=== PATIENT | female | born 1990 | race American Indian/Alaskan Native ===

== ENCOUNTER 2017-03-03 10:12 | Inpatient (IN) | payer MEDICAID, OTHER ==
[2017-03-03 10:43] LABS: Hematocrit 39.4 % (30.3-42.9); Hemoglobin 13.5 gm/dl (10.1-14.3); Mean Corpuscular HGB Conc 34 % (30-34); Mean Corpuscular Hemoglobin 33 pg (28-32); Mean Corpuscular Volume 95 fl (79-97); Platelet Count 240 K/mm3 (140-440); Red Blood Count 4.16 M/mm3 (3.65-5.03); Red Cell Distribution Width 13.7 % (13.2-15.2); White Blood Count 8.6 K/mm3 (4.5-11.0)
[2017-03-03 11:02] LABS: Alanine Aminotransferase 13 units/L (7-56); Albumin 4.1 g/dL (3.9-5); Albumin/Globulin Ratio 1.2 %; Alkaline Phosphatase 56 units/L (35-129); Anion Gap 18 mmol/L; BUN/Creatinine Ratio 32; Blood Urea Nitrogen 16 mg/dL (7-17); Calcium 9.1 mg/dL (8.4-10.2); Carbon Dioxide 23 mmol/L (22-30); Chloride 101.4 mmol/L (98-107); Glucose 111 mg/dL (65-100); Lipase 12 units/L (13-60); Potassium 3.8 mmol/L (3.6-5.0); Sodium 139 mmol/L (137-145); Total Protein 7.5 g/dL (6.3-8.2)
[2017-03-03 11:32] LABS: Basophils % (Manual) 0 % (0.0-1.8); Blastocytes % (Manual) 0 %; Diff Status Complete; Eosinophils % (Manual) 0 % (0.0-4.3); RBC Morphology Normal
[2017-03-03 11:36] LABS: Bacteria,Urine 1+ /HPF (Negative); Bilirubin,Urine NEG (Negative); Blood,Urine NEG (Negative); Ketones,Urine NEG (Negative); Leukocyte Esterase,Urine NEG (Negative); Mucus,Urine 2+ /HPF; Nitrite,Urine NEG (Negative); Protein,Urine <15 mg/dL mg/dL (Negative); Urobilinogen,Urine < 2.0 mg/dL (<2.0)
[2017-03-03] MEDS ORDERED: SUBLIMAZE IV ONE (12:53)
[2017-03-03] MEDS ORDERED: ZOFRAN IV ONE (12:53)
[2017-03-03] MEDS ORDERED: NACL 0.9% 1000 ML 1,000 ML IV ONE ×2 (12:53→14:58)
--- NOTE | 2017-03-03 13:00 | Emergency Department Report ---
HPI - General Chief Complaint: Nausea/Vomiting/Diarrhea Time Seen by Provider: 03/03/17 12:45 - [facility] HPI: Bond 26 The patient is a 26-year-old female presenting with a chief complaint abdominal pain nausea vomiting diarrhea. The patient states yesterday she had eaten some baked chicken and then went to [email or web address] and ate a chicken concerning which with yemeni fries. The patient states approximately one hour later she developed intractable nausea and vomiting. The patient says she's been vomiting every hour since 20:00 last night. Patient states more additional developed diarrhea. The patient complains of diffuse abdominal pain. Patient denies dysuria, hematuria or sick contacts. Patient denies any history of fever. Location: Abdomen Duration: Constant since yesterday evening Quality: Pain Severity: Moderate Modifying factors: [see above] Context: [see above] Mode of transportation: Unknown ED Past Medical Hx - Past Medical History Hx GERD: Yes - Surgical History Past Surgical History?: No - Family History Family history: no significant - Social History Smoking Status: Never Smoker Substance Use Type: None (denies illicit drug use), Alcohol (occasional) - Medications Home Medications: Home Medications Medication Instructions Recorded Confirmed Last Taken Type Acetaminophen/Codeine [Tylenol 1 tab PO Q6H PRN #15 tab 06/05/13 Unknown Rx /Codeine # 3 tab] Naproxen Sodium (Nf) [Anaprox DS 550 mg PO BID PRN #20 tablet 06/05/13 Unknown Rx TAB] ED Review of Systems ROS: Stated complaint: VOMITING Other details as noted in HPI Constitutional: denies: fever Gastrointestinal: abdominal pain, nausea, vomiting, diarrhea, hematemesis Physical Exam - Physical Exam Vital Signs: Vital Signs 03/03/17 10:20 Temperature 96.6 F L Pulse Rate 89 Respiratory 22 Rate Blood Pressure 111/71 O2 Sat by Pulse 98 Oximetry Physical Exam: GENERAL: The patient is well-developed well-nourished female lying on stretcher not appearing to be in acute distress. [] HEENT: Normocephalic. Atraumatic. Extraocular motions are intact. Patient has moist mucous membranes. NECK: Supple. Trachea midline CHEST/LUNGS: Clear to auscultation. There is no respiratory distress noted. HEART/CARDIOVASCULAR: Regular. There is no tachycardia. There is no gallop rub or murmur. ABDOMEN: Abdomen is soft, with tenderness to palpation in the right lower quadrant. Patient has normal bowel sounds. There is no abdominal distention. SKIN: There is no rash. There is no edema. There is no diaphoresis. NEURO: The patient is awake, alert, and oriented. The patient is cooperative. The patient has normal speech MUSCULOSKELETAL: There is no evidence of acute injury. ED Course Vital Signs 03/03/17 10:20 Temperature 96.6 F L Pulse Rate 89 Respiratory 22 Rate Blood Pressure 111/71 O2 Sat by Pulse 98 Oximetry - Consultations Consultation #1: 03/03/17 14:46 Surgery paged 03/03/17 14:[address] Monahan- recommends the patient admitted to the hospital by the hospitalist observed overnight, rehydrated and have CBC rechecked. Will consult ED Medical Decision Making - Lab Data Result diagrams: 03/03/17 10:26 03/03/17 10:26 Laboratory Tests 03/03/17 03/03/17 03/03/17 10:26 10:26 10:26 WBC 8.6 RBC 4.16 Hgb 13.5 Hct 39.4 MCV 95 MCH 33 H MCHC 34 RDW 13.7 Plt Count 240 Add Manual Diff Complete Total Counted 100 Seg Neutrophils % Traditional Chinese Herbalist Seg Neuts % (Manual) 89.0 H Band Neutrophils % 2.0 Lymphocytes % (Manual) 8.0 L Reactive Lymphs % (Man) 0 Monocytes % (Manual) 1.0 Eosinophils % (Manual) 0 Basophils % (Manual) 0 Metamyelocytes % 0 Myelocytes % 0 Promyelocytes % 0 Blast Cells % 0 Nucleated RBC % Not Reportable Seg Neutrophils # Man 7.7 Band Neutrophils # 0.2 Lymphocytes # (Manual) 0.7 L Abs React Lymphs (Man) 0.0 Monocytes # (Manual) 0.1 Eosinophils # (Manual) 0.0 Basophils # (Manual) 0.0 Metamyelocytes # 0.0 Myelocytes # 0.0 Promyelocytes # 0.0 Blast Cells # 0.0 WBC Morphology Not Reportable Hypersegmented Neuts Not Reportable Hyposegmented Neuts Not Reportable Hypogranular Neuts Not Reportable Smudge Cells Not Reportable Toxic Granulation Not Reportable Toxic Vacuolation Not Reportable Dohle Bodies Not Reportable Pelger-Huet Anomaly Not Reportable Aminata Rods Not Reportable Platelet Estimate Not Reportable Clumped Platelets Not Reportable Plt Clumps, EDTA Not Reportable Large Platelets Not Reportable Giant Platelets Not Reportable Platelet Satelliting Not Reportable Plt Morphology Comment Not Reportable RBC Morphology Normal Dimorphic RBCs Not Reportable Polychromasia Not Reportable Hypochromasia Not Reportable Poikilocytosis Not Reportable Anisocytosis Not Reportable Microcytosis Not Reportable Macrocytosis Not Reportable Spherocytes Not Reportable Pappenheimer Bodies Not Reportable Sickle Cells Not Reportable Target Cells Not Reportable Tear Drop Cells Not Reportable Ovalocytes Not Reportable Helmet Cells Not Reportable Lund[place] Bodies Not Reportable [place] Rings Not Reportable Frankie Cells Not Reportable Bite Cells Not Reportable Crenated Cell Not Reportable Elliptocytes Not Reportable Acanthocytes (Spur) Not Reportable Rouleaux Not Reportable Hemoglobin C Crystals Not Reportable Schistocytes Not Reportable Malaria parasites Not Reportable Daniele Bodies Not Reportable Hem Pathologist Commnt No Sodium 139 Potassium 3.8 Chloride 101.4 Carbon Dioxide 23 Anion Gap 18 BUN 16 Creatinine 0.5 L Estimated GFR > 60 BUN/Creatinine Ratio 32 Glucose 111 H Calcium 9.1 Total Bilirubin 0.60 AST 17 ALT 13 Alkaline Phosphatase 56 Total Protein 7.5 Albumin 4.1 Albumin/Globulin Ratio 1.2 Lipase 12 L HCG, Qual Negative Urine Color Urine Turbidity Urine pH Ur Specific [place] Urine Protein Urine Glucose (UA) Urine Ketones Urine Blood Urine Nitrite Urine Bilirubin Urine Urobilinogen Ur Leukocyte Esterase Urine WBC (Auto) Urine RBC (Auto) U Epithel Cells (Auto) Urine Bacteria (Auto) Urine Mucus 03/03/17 11:12 WBC RBC Hgb Hct MCV MCH MCHC RDW Plt Count Add Manual Diff Total Counted Seg Neutrophils % Seg Neuts % (Manual) Band Neutrophils % Lymphocytes % (Manual) Reactive Lymphs % (Man) Monocytes % (Manual) Eosinophils % (Manual) Basophils % (Manual) Metamyelocytes % Myelocytes % Promyelocytes % Blast Cells % Nucleated RBC % Seg Neutrophils # Man Band Neutrophils # Lymphocytes # (Manual) Abs React Lymphs (Man) Monocytes # (Manual) Eosinophils # (Manual) Basophils # (Manual) Metamyelocytes # Myelocytes # Promyelocytes # Blast Cells # WBC Morphology Hypersegmented Neuts Hyposegmented Neuts Hypogranular Neuts Smudge Cells Toxic Granulation Toxic Vacuolation Dohle Bodies Pelger-Huet Anomaly Aminata Rods Platelet Estimate Clumped Platelets Plt Clumps, EDTA Large Platelets Giant Platelets Platelet Satelliting Plt Morphology Comment RBC Morphology Dimorphic RBCs Polychromasia Hypochromasia Poikilocytosis Anisocytosis Microcytosis Macrocytosis Spherocytes Pappenheimer Bodies Sickle Cells Target Cells Tear Drop Cells Ovalocytes Helmet Cells [place] Bodies [place] Rings Frank[place] Cells Bite Cells Crenated Cell Elliptocytes Acanthocytes (Spur) Rouleaux Hemoglobin C Crystals Schistocytes Malaria parasites Daniele Bodies Hem Pathologist Commnt Sodium Potassium Chloride Carbon Dioxide Anion Gap BUN Creatinine Estimated GFR BUN/Creatinine Ratio Glucose Calcium Total Bilirubin AST ALT Alkaline Phosphatase Total Protein Albumin Albumin/Globulin Ratio Lipase HCG, Qual Urine Color Yellow Urine Turbidity Clear Urine pH 5.0 Ur Specific [place] 1.033 H Urine Protein <15 mg/dl Urine Glucose (UA) Neg Urine Ketones Neg Urine Blood Neg Urine Nitrite Neg Urine Bilirubin Neg Urine Urobilinogen < 2.0 Ur Leukocyte Esterase Neg Urine WBC (Auto) 1.0 Urine RBC (Auto) 7.0 U Epithel Cells (Auto) 3.0 Urine Bacteria (Auto) 1+ Urine Mucus 2+ - Radiology Data Radiology results: report reviewed (CT abdomen and pelvis), image reviewed (CT abdomen and pelvis) FINAL REPORT EXAM: CT ABDOMEN PELVIS W CON HISTORY: nausea and vomiting, right lower quadrant tenderne TECHNIQUE: CT examination of the ABDOMEN after IV contrast CT examination of the PELVIS after IV contrast PRIORS: None. FINDINGS: Lucencies in the gallbladder lumen are suggestive of gas within gallstones. No CT evidence of other biliary pathology. Normal-appearing liver, adrenals, pancreas, and spleen. Intact normal caliber abdominal aorta and IVC. No renal calculus or hydronephrosis. Normal-appearing kidneys and visible ureteral segments. Distal ureters are obscured by adjacent pelvic anatomy. Intact anterior abdominal wall. No evidence of retroperitoneal adenopathy or mesenteric mass. Normal-appearing stomach and duodenum. No small bowel distention in the abdomen and pelvis. Nonspecific slight pelvic free fluid may be reactive. Normal-appearing urinary bladder, uterus, adnexae, and rectum. Slight sigmoid diverticulosis without definite CT evidence of acute inflammation. No gross ascites, free air, or colonic distention. Normal-appearing cecum and terminal ileum. 3 mm appendicolith in the mid appendix. Otherwise normal-appearing appendix. IMPRESSION: 3 mm appendicolith in otherwise normal-appearing appendix Cholelithiasis Slight free fluid in the pelvis may be reactive Slight sigmoid diverticulosis Transcribed By: ALBINO Dictated By: LINDA GOTTI MD Electronically Authenticated By: LINDA GOTTI MD Signed Date/Time: 03/03/171031 DD/ 31 TD/TT: 03/03/171031 - Differential Diagnosis salmonella, enteritis, appendicitis Critical care attestation.: If time is entered above; I have spent that time in minutes in the direct care of this critically ill patient, excluding procedure time. ED Disposition Clinical Impression: Nausea vomiting and diarrhea, Appendicolith, Cholelithiasis Disposition: [id number] OP ADMIT IP TO THIS HOSP Is pt being admited?: Yes Does the pt Need Aspirin: No Condition: Fair Referrals: PRIMARY CARE, [Primary Care Provider] - 3-5 Days Time of Disposition: 14:57 (hospitalist paged (Dr. Riddle))
--- NOTE | 2017-03-03 14:36 | Cat Scan Report ---
FINAL REPORT EXAM: CT ABDOMEN PELVIS W CON HISTORY: nausea and vomiting, right lower quadrant tenderne TECHNIQUE: CT examination of the ABDOMEN after IV contrast CT examination of the PELVIS after IV contrast PRIORS: None. FINDINGS: Lucencies in the gallbladder lumen are suggestive of gas within gallstones. No CT evidence of other biliary pathology. Normal-appearing liver, adrenals, pancreas, and spleen. Intact normal caliber abdominal aorta and IVC. No renal calculus or hydronephrosis. Normal-appearing kidneys and visible ureteral segments. Distal ureters are obscured by adjacent pelvic anatomy. Intact anterior abdominal wall. No evidence of retroperitoneal adenopathy or mesenteric mass. Normal-appearing stomach and duodenum. No small bowel distention in the abdomen and pelvis. Nonspecific slight pelvic free fluid may be reactive. Normal-appearing urinary bladder, uterus, adnexae, and rectum. Slight sigmoid diverticulosis without definite CT evidence of acute inflammation. No gross ascites, free air, or colonic distention. Normal-appearing cecum and terminal ileum. 3 mm appendicolith in the mid appendix. Otherwise normal-appearing appendix. IMPRESSION: 3 mm appendicolith in otherwise normal-appearing appendix Cholelithiasis Slight free fluid in the pelvis may be reactive Slight sigmoid diverticulosis
--- NOTE | 2017-03-03 15:12 | History and Physical Report ---
History of Present Illness Chief complaint: My stomach hurts History of present illness: 26 YO Female with GERD, Obesity presents to ED for evaluation. Pt states that she has experienced Abdominal pain preceded by nausea, vomiting, and multiple episodes of loose stools. Pt states that symptoms began approximately 2 hours after eating some fast food. The patient states approximately 1-2hours later she developed intractable nausea and vomiting. The patient says she's been vomiting every hour since 20:00 last night. The patient states that her pain is 5/10, diffuse,nonradiating, without exacerbating or alleviating factors. Patient denies fever, chills, CP, skin rashes, dysuria, hematuria or sick contacts. Pt seen and evaluated in ED and found to have symptoms consistent with gastroenteritis, and intractible nausea and vomiting. Past History Past Medical History: GERD Past Surgical History: No surgical history Social history: single. denies: smoking, alcohol abuse, prescription drug abuse Family history: no significant family history Medications and Allergies Allergies Allergy/AdvReac Type Severity Reaction Status Date / Time No Known Allergies Allergy Unverified 06/04/13 22:49 Home Medications Medication Instructions Recorded Confirmed Last Taken Type No Known Home Medications [No 03/03/17 03/03/17 Unknown History Reported Home Medications] Active Meds: Active Medications Sodium Chloride (Nacl 0.9% 1000 Ml) 1,000 mls @ 125 mls/hr IV ONCE ONE Stop: 03/03/17 22:57 Review of Systems Constitutional: no weight loss, no weight gain, no fever, no chills Ears, nose, mouth and throat: no ear pain, no ear discharge, no tinnitis, no decreased hearing, no nose pain Breasts: no change in shape, no swelling, no mass Cardiovascular: no chest pain, no orthopnea, no palpitations, no rapid/ irregular heart beat, no edema Respiratory: no cough, no cough with sputum, no excessive sputum, no hemoptysis , no shortness of breath Gastrointestinal: abdominal pain, nausea, vomiting, diarrhea, no hematemesis, no coffee ground emesis, no melena, no hematochezia, no loss of appetite, no early satiety, no heartburn, no indigestion Genitourinary Female: no pelvic pain, no flank pain, no menorrhagia, no dysuria , no urinary frequency, no urgency, no stress incontinence Rectal: no pain, no incontinence, no bleeding Musculoskeletal: no neck stiffness, no neck pain, no shooting arm pain, no arm numbness/tingling, no low back pain, no shooting leg pain Neurological: no head injury, no paralysis, no weakness, no parathesias, no numbness, no tingling Psychiatric: no anxiety, no memory loss, no change in sleep habits, no sleep disturbances, no insomnia, no hypersomnia, no change in appetite Endocrine: no cold intolerance, no heat intolerance, no polyphagia, no excessive thirst, no polydipsia, no polyuria Hematologic/Lymphatic: no easy bruising, no easy bleeding Allergic/Immunologic: no urticaria, no allergic rhinitis, no wheezing Exam - Constitutional Vitals: Temp Pulse Resp BP Pulse Ox 96.6 F L 89 22 111/71 98 03/03/17 10:20 03/03/17 10:20 03/03/17 10:20 03/03/17 10:20 03/03/17 10:20 General appearance: Present: mild distress, obese - EENT Eyes: Present: PERRL ENT: hearing intact, clear oral mucosa - Neck Neck: Present: supple, normal ROM - Respiratory Respiratory effort: normal Respiratory: bilateral: CTA - Cardiovascular Heart Sounds: Present: S1 & S2. Absent: rub, click - Extremities Extremities: pulses symmetrical, No edema Peripheral Pulses: within normal limits - Abdominal General gastrointestinal: Present: soft, tender, non-distended, normal bowel sounds Localized gastrointestinal: tender: diffuse Female genitourinary: Present: normal - Integumentary Integumentary: Present: clear, warm, dry - Musculoskeletal Musculoskeletal: gait normal, strength equal bilaterally - Psychiatric Psychiatric: appropriate mood/affect, intact judgment & insight - Neurologic Neurologic: CNII-XII intact, moves all extremities Results - Labs CBC & Chem 7: 03/03/17 10:26 03/03/17 10:26 Labs: Abnormal lab results 03/03/17 03/03/17 03/03/17 Range/Units 10:26 10:26 11:12 MCH 33 H (28-32) pg Seg Neuts % (Manual) 89.0 H (40.0-70.0) % Lymphocytes % (Manual) 8.0 L (13.4-35.0) % Lymphocytes # (Manual) 0.7 L (1.2-5.4) K/mm3 Creatinine 0.5 L (0.7-1.2) mg/dL Glucose 111 H (65-100) mg/dL Lipase 12 L (13-60) units/L Ur Specific [place] 1.033 H (1.003-1.030) Assessment and Plan - Patient Problems (1) Gastroenteritis Current Visit: Yes Status: Acute Plan to address problem: Bowel rest, CT abdomen/Pelvis, IVF resuscitation, antiemetic therapy, monitor uop q shift, serial abdominal exam, surgery consulted in ED (2) Intractable nausea and vomiting Current Visit: Yes Status: Acute Plan to address problem: bowel rest, IVF resuscitation, anti emetic therapy, (3) GERD (gastroesophageal reflux disease) Current Visit: Yes Status: Acute Plan to address problem: PPI therapy, advance diet as tolerated (4) DVT prophylaxis Current Visit: Yes Status: Acute
[2017-03-03] MEDS ORDERED: ZOFRAN IV PRN (15:13)
[2017-03-03] MEDS ORDERED: TYLENOL PO PRN (15:13)
[2017-03-03] MEDS ORDERED: PROVENTIL IH PRN (15:13)
[2017-03-03] MEDS: MORPHINE IV PRN (22:42)
[2017-03-04] MEDS: NACL 0.45% 1000 ML 1,000 ML IV SCH ×2 (05:50→17:16)
--- NOTE | 2017-03-04 09:08 | Progress Note ---
Assessment and Plan Assessment and plan: Acute gastroenteritis. She is on iv fluids. narcotics for pain management. Appendicolith. Patient to be evaluated by Surgeon Nausea and vomiting due to gastroenteritis Cholelithiasis. For US gall bladder for further evaluation. DVT prophylaxis. SCDs only for now because may need surg. Full code status Morbid obesity. I counseled her on importance of diet and exercise to lose weight. History Interval history: Right lower quadrant abdominal pain, nausea, vomiting Hospitalist Physical - Physical exam Narrative exam: GEN APPEARANCE : Not in acute distress, morbidly obese HEENT: Normocephalic, Atraumatic NECK : supple, no JVD LUNGS: Clear to auscultation bilaterally, no rales, no wheeze HEART: S1 and S2 regular, no murmurs, rubs or gallop, ABD: Soft, mild tender right lower quadrant, no rebound tenderness, non distended, normal bowel sounds EXT: No edema, no clubbing, no cyanosis NEURO: AAO x 3, moves all exttremities. No focal signs - Constitutional Vitals: Temp Pulse Resp BP Pulse Ox 98.3 F 73 18 100/54 97 03/04/17 07:12 03/04/17 07:12 03/04/17 07:12 03/04/17 07:12 03/04/17 07:12 Results - Labs CBC & Chem 7: 03/04/17 10:13 03/04/17 10:13 Labs: Laboratory Last Values WBC 8.6 K/mm3 (4.5-11.0) 03/03/17 10:26 RBC 4.16 M/mm3 (3.65-5.03) 03/03/17 10:26 Hgb 13.5 gm/dl (10.1-14.3) 03/03/17 10:26 Hct 39.4 % (30.3-42.9) 03/03/17 10:26 MCV 95 fl (79-97) 03/03/17 10:26 MCH 33 pg (28-32) H 03/03/17 10:26 MCHC 34 % (30-34) 03/03/17 10:26 RDW 13.7 % (13.2-15.2) 03/03/17 10:26 Plt Count 240 K/mm3 (140-440) 03/03/17 10:26 Add Manual Diff Complete 03/03/17 10:26 Total Counted 100 03/03/17 10:26 Seg Neutrophils % [place] 03/03/17 10:26 Seg Neuts % (Manual) 89.0 % (40.0-70.0) H 03/03/17 10:26 Band Neutrophils % 2.0 % 03/03/17 10:26 Lymphocytes % (Manual) 8.0 % (13.4-35.0) L 03/03/17 10:26 Reactive Lymphs % (Man) 0 % 03/03/17 10:26 Monocytes % (Manual) 1.0 % (0.0-7.3) 03/03/17 10:26 Eosinophils % (Manual) 0 % (0.0-4.3) 03/03/17 10:26 Basophils % (Manual) 0 % (0.0-1.8) 03/03/17 10:26 Metamyelocytes % 0 % 03/03/17 10:26 Myelocytes % 0 % 03/03/17 10:26 Promyelocytes % 0 % 03/03/17 10:26 Blast Cells % 0 % 03/03/17 10:26 Nucleated RBC % Not Reportable 03/03/17 10:26 Seg Neutrophils # Man 7.7 K/mm3 (1.8-7.7) 03/03/17 10:26 Band Neutrophils # 0.2 K/mm3 03/03/17 10:26 Lymphocytes # (Manual) 0.7 K/mm3 (1.2-5.4) L 03/03/17 10:26 Abs React Lymphs (Man) 0.0 K/mm3 03/03/17 10:26 Monocytes # (Manual) 0.1 K/mm3 (0.0-0.8) 03/03/17 10:26 Eosinophils # (Manual) 0.0 K/mm3 (0.0-0.4) 03/03/17 10:26 Basophils # (Manual) 0.0 K/mm3 (0.0-0.1) 03/03/17 10:26 Metamyelocytes # 0.0 K/mm3 03/03/17 10:26 Myelocytes # 0.0 K/mm3 03/03/17 10:26 Promyelocytes # 0.0 K/mm3 03/03/17 10:26 Blast Cells # 0.0 K/mm3 03/03/17 10:26 WBC Morphology Not Reportable 03/03/17 10:26 Hypersegmented Neuts Not Reportable 03/03/17 10:26 Hyposegmented Neuts Not Reportable 03/03/17 10:26 Hypogranular Neuts Not Reportable 03/03/17 10:26 Smudge Cells Not Reportable 03/03/17 10:26 Toxic Granulation Not Reportable 03/03/17 10:26 Toxic Vacuolation Not Reportable 03/03/17 10:26 Dohle Bodies Not Reportable 03/03/17 10:26 Pelger-Huet Anomaly Not Reportable 03/03/17 10:26 Aminata Rods Not Reportable 03/03/17 10:26 Platelet Estimate Not Reportable 03/03/17 10:26 Clumped Platelets Not Reportable 03/03/17 10:26 Plt Clumps, EDTA Not Reportable 03/03/17 10:26 Large Platelets Not Reportable 03/03/17 10:26 Giant Platelets Not Reportable 03/03/17 10:26 Platelet Satelliting Not Reportable 03/03/17 10:26 Plt Morphology Comment Not Reportable 03/03/17 10:26 RBC Morphology Normal 03/03/17 10:26 Dimorphic RBCs Not Reportable 03/03/17 10:26 Polychromasia Not Reportable 03/03/17 10:26 Hypochromasia Not Reportable 03/03/17 10:26 Poikilocytosis Not Reportable 03/03/17 10:26 Anisocytosis Not Reportable 03/03/17 10:26 Microcytosis Not Reportable 03/03/17 10:26 Macrocytosis Not Reportable 03/03/17 10:26 Spherocytes Not Reportable 03/03/17 10:26 Pappenheimer Bodies Not Reportable 03/03/17 10:26 Sickle Cells Not Reportable 03/03/17 10:26 Target Cells Not Reportable 03/03/17 10:26 Tear Drop Cells Not Reportable 03/03/17 10:26 Ovalocytes Not Reportable 03/03/17 10:26 Helmet Cells Not Reportable 03/03/17 10:26 Lundberg-[place] Bodies Not Reportable 03/03/17 10:26 [place] Rings Not Reportable 03/03/17 10:26 Frankie Cells Not Reportable 03/03/17 10:26 Bite Cells Not Reportable 03/03/17 10:26 Crenated Cell Not Reportable 03/03/17 10:26 Elliptocytes Not Reportable 03/03/17 10:26 Acanthocytes (Spur) Not Reportable 03/03/17 10:26 Rouleaux Not Reportable 03/03/17 10:26 Hemoglobin C Crystals Not Reportable 03/03/17 10:26 Schistocytes Not Reportable 03/03/17 10:26 Malaria parasites Not Reportable 03/03/17 10:26 Daniele Bodies Not Reportable 03/03/17 10:26 Hem Pathologist Commnt No 03/03/17 10:26 Sodium 139 mmol/L (137-145) 03/03/17 10:26 Potassium 3.8 mmol/L (3.6-5.0) 03/03/17 10:26 Chloride 101.4 mmol/L (98-107) 03/03/17 10:26 Carbon Dioxide 23 mmol/L (22-30) 03/03/17 10:26 Anion Gap 18 mmol/L 03/03/17 10:26 BUN 16 mg/dL (7-17) 03/03/17 10:26 Creatinine 0.5 mg/dL (0.7-1.2) L 03/03/17 10:26 Estimated GFR > 60 ml/min 03/03/17 10:26 BUN/Creatinine Ratio 32 % 03/03/17 10:26 Glucose 111 mg/dL (65-100) H 03/03/17 10:26 Calcium 9.1 mg/dL (8.4-10.2) 03/03/17 10:26 Total Bilirubin 0.60 mg/dL (0.1-1.2) 03/03/17 10:26 AST 17 units/L (5-40) 03/03/17 10:26 ALT 13 units/L (7-56) 03/03/17 10:26 Alkaline Phosphatase 56 units/L (35-129) 03/03/17 10:26 Total Protein 7.5 g/dL (6.3-8.2) 03/03/17 10:26 Albumin 4.1 g/dL (3.9-5) 03/03/17 10:26 Albumin/Globulin Ratio 1.2 % 03/03/17 10:26 Lipase 12 units/L (13-60) L 03/03/17 10:26 HCG, Qual Negative (Negative) 03/03/17 10:26 Urine Color Yellow (Yellow) 03/03/17 11:12 Urine Turbidity Clear (Clear) 03/03/17 11:12 Urine pH 5.0 (5.0-7.0) 03/03/17 11:12 Ur Specific [place] 1.033 (1.003-1.030) H 03/03/17 11:12 Urine Protein <15 mg/dl mg/dL (Negative) 03/03/17 11:12 Urine Glucose (UA) Neg mg/dL (Negative) 03/03/17 11:12 Urine Ketones Neg mg/dL (Negative) 03/03/17 11:12 Urine Blood Neg (Negative) 03/03/17 11:12 Urine Nitrite Neg (Negative) 03/03/17 11:12 Urine Bilirubin Neg (Negative) 03/03/17 11:12 Urine Urobilinogen < 2.0 mg/dL (<2.0) 03/03/17 11:12 Ur Leukocyte Esterase Neg (Negative) 03/03/17 11:12 Urine WBC (Auto) 1.0 /HPF (0.0-6.0) 03/03/17 11:12 Urine RBC (Auto) 7.0 /HPF (0.0-6.0) 03/03/17 11:12 U Epithel Cells (Auto) 3.0 /HPF (0-13.0) 03/03/17 11:12 Urine Bacteria (Auto) 1+ /HPF (Negative) 03/03/17 11:12 Urine Mucus 2+ /HPF 03/03/17 11:12
--- NOTE | 2017-03-04 09:41 | Progress Note ---
Assessment and Plan Full consult dictated History of Present Illness Chief complaint: My stomach hurts History of present illness: 26 YO Female with GERD, Obesity presents to ED for evaluation. Pt states that she has experienced Abdominal pain preceded by nausea, vomiting, and multiple episodes of loose stools. Pt states that symptoms began approximately 2 hours after eating some fast food. The patient states approximately 1-2hours later she developed intractable nausea and vomiting. The patient says she's been vomiting every hour since 20:00 last night. The patient states that her pain is 5/10, diffuse,nonradiating, without exacerbating or alleviating factors. Patient denies fever, chills, CP, skin rashes, dysuria, hematuria or sick contacts. Pt seen and evaluated in ED and found to have symptoms consistent with gastroenteritis, and intractible nausea and vomiting. Pt feeling much better this am. still some loose stools but no abd pain. vomiting resolved Abs soft but mild epig tenderness Past History Past Medical History: GERD Past Surgical History: oral surg NKA No meds Social history: single. denies: smoking, alcohol abuse, prescription drug abuse Family history: DM, HTN reviewed CT with radiologist. consistent with gastroenteritis. fluid filled , non dilated small bowel loops. neg surrounding appendiceal inflammation. 1 gallstone noted but no radiographic evidence of cholecystitis imp r/o gastroenteritis. keep npo except for ice chips and meds until diarrhea resolves. stool cult's f/u wbc GB US to confirm gallstones r/o biliary colic along with gastroenteritis (secondary to mild epig tenderness along with possible gallstone) Selected Entries 03/04/17 07:12 Temperature 98.3 F Pulse Rate 73 Respiratory 18 Rate Blood Pressure 100/54 Laboratory Tests 03/03/17 03/03/17 10:26 10:26 WBC 8.6 Hgb 13.5 Hct 39.4 Sodium 139 Potassium 3.8 Chloride 101.4 Carbon Dioxide 23 BUN 16 Creatinine 0.5 L Glucose 111 H Total Bilirubin 0.60 AST 17 ALT 13 Alkaline Phosphatase 56 Lipase 12 L Objective Vital Signs - 12hr 03/03/17 03/03/17 03/03/17 22:05 22:42 22:56 Temperature 98.7 F Pulse Rate 64 Respiratory 20 18 Rate Blood Pressure 94/47 O2 Sat by Pulse 98 99 Oximetry 03/04/17 07:12 Temperature 98.3 F Pulse Rate 73 Respiratory 18 Rate Blood Pressure 100/54 O2 Sat by Pulse 97 Oximetry - Labs 03/03/17 10:26 03/03/17 10:26 Diabetes panel 03/03/17 Range/Units 10:26 Sodium 139 (137-145) mmol/L Potassium 3.8 (3.6-5.0) mmol/L Chloride 101.4 (98-107) mmol/L Carbon Dioxide 23 (22-30) mmol/L BUN 16 (7-17) mg/dL Creatinine 0.5 L (0.7-1.2) mg/dL Glucose 111 H (65-100) mg/dL Calcium 9.1 (8.4-10.2) mg/dL AST 17 (5-40) units/L ALT 13 (7-56) units/L Alkaline Phosphatase 56 (35-129) units/L Total Protein 7.5 (6.3-8.2) g/dL Albumin 4.1 (3.9-5) g/dL Calcium panel 03/03/17 Range/Units 10:26 Calcium 9.1 (8.4-10.2) mg/dL Albumin 4.1 (3.9-5) g/dL Pituitary panel 03/03/17 Range/Units 10:26 Sodium 139 (137-145) mmol/L Potassium 3.8 (3.6-5.0) mmol/L Chloride 101.4 (98-107) mmol/L Carbon Dioxide 23 (22-30) mmol/L BUN 16 (7-17) mg/dL Creatinine 0.5 L (0.7-1.2) mg/dL Glucose 111 H (65-100) mg/dL Calcium 9.1 (8.4-10.2) mg/dL Adrenal panel 03/03/17 Range/Units 10:26 Sodium 139 (137-145) mmol/L Potassium 3.8 (3.6-5.0) mmol/L Chloride 101.4 (98-107) mmol/L Carbon Dioxide 23 (22-30) mmol/L BUN 16 (7-17) mg/dL Creatinine 0.5 L (0.7-1.2) mg/dL Glucose 111 H (65-100) mg/dL Calcium 9.1 (8.4-10.2) mg/dL Total Bilirubin 0.60 (0.1-1.2) mg/dL AST 17 (5-40) units/L ALT 13 (7-56) units/L Alkaline Phosphatase 56 (35-129) units/L Total Protein 7.5 (6.3-8.2) g/dL Albumin 4.1 (3.9-5) g/dL
[2017-03-04 10:47] LABS: Basophils % (Auto) 0.6 % (0.0-1.8); Eosinophils % (Auto) 2.6 % (0.0-4.3); Hematocrit 36.5 % (30.3-42.9); Hemoglobin 12.2 gm/dl (10.1-14.3); Mean Corpuscular HGB Conc 33 % (30-34); Mean Corpuscular Hemoglobin 32 pg (28-32); Mean Corpuscular Volume 95 fl (79-97); Platelet Count 221 K/mm3 (140-440); Red Blood Count 3.83 M/mm3 (3.65-5.03); White Blood Count 4.3 K/mm3 (4.5-11.0)
[2017-03-04 10:54] LABS: Alanine Aminotransferase 10 units/L (7-56); Albumin 3.2 g/dL (3.9-5); Albumin/Globulin Ratio 1.1 %; Alkaline Phosphatase 45 units/L (35-129); Amylase 42 units/L (27-131); Anion Gap 17 mmol/L; BUN/Creatinine Ratio 14; Blood Urea Nitrogen 7 mg/dL (7-17); Calcium 8.3 mg/dL (8.4-10.2); Carbon Dioxide 22 mmol/L (22-30); Chloride 103.9 mmol/L (98-107); Glucose 82 mg/dL (65-100); Potassium 3.6 mmol/L (3.6-5.0); Sodium 139 mmol/L (137-145)
--- NOTE | 2017-03-04 12:35 | Ultrasound Report ---
Sonogram right upper quadrant: History: Gallstone. Findings: Right identified within the gallbladder. The larger measures 1.5 cm smaller measures 1.2 cm. No pericholecystic fluid. Gallbladder wall thickness 2.2 mm. Common bile duct diameter 3.7 mm. No intrahepatic duct dilatation. Normal liver. Right kidney 11.6 x 5.3 x 4.5 cm. Cortical thickness is 1.0 cm. No mass. No hydronephrosis. Impression: 2 calculi in the gallbladder.
--- NOTE | 2017-03-04 22:20 | Consultation ---
REASON FOR CONSULTATION: Abdominal pain, rule out appendicitis, rule out cholecystitis, rule out gastroenteritis. HISTORY OF PRESENT ILLNESS: The patient is a healthy 26-year-old female who presented through the Emergency Room last night with a chief complaint of abdominal pain accompanied by cramps, diarrhea, nausea and vomiting. The patient states she some loose stools, but her abdominal pain has since resolved. PAST MEDICAL HISTORY: Negative. PAST SURGICAL HISTORY: Status post oral surgery. ALLERGIES: No known allergies. MEDICATIONS: No medications. FAMILY HISTORY: Diabetes and hypertension. SOCIAL HISTORY: Denies any smoking or drinking. REVIEW OF SYSTEMS: Noncontributory. PHYSICAL EXAMINATION: GENERAL: At this time reveals the patient to be awake, alert, cooperative, in good spirits, in no acute distress. VITAL SIGNS: Show her to be afebrile with a temperature 98.3, blood pressure 100/54, pulse of 73, respirations of 18. ABDOMEN: Reveals it to be moderately obese and soft. There is very mild epigastric tenderness, but no rebound or guarding can be elicited. Bowel sounds are somewhat hyperactive. LABORATORY DATA: At present includes a CBC which shows a white count of 8.6, H and H is H 13.5 and 39. Electrolytes were essentially within normal limits including a sodium 139, potassium 3.8, chloride 101, CO2 of 23, BUN 16, creatinine is 0.5. Glucose is 111. LFTs are normal including a total bilirubin of 0.6, AST 17, ALT of 13, alkaline phosphatase is 56. Lipase is normal at 12. A CT scan of the abdomen has been performed, which I have reviewed with the radiologist. There are definitely is fluid filled small bowel loops without evidence of dilatation or obstruction consistent with gastroenteritis. Possible gallstone is noted which we will confirm with a subsequent gallbladder ultrasound. Appendicolith is noted in the tip of the appendix, but no evidence of dilated appendix or any surrounding periappendiceal inflammation. IMPRESSION: 1. At this time is that of a healthy 26-year-old female, rule out gastroenteritis. 2. Rule out possible biliary colic due to the slight epigastric tenderness and isolated gallstone on CT, but this was most likely to be secondary diagnosis. 3. No real evidence of appendicitis at this time. RECOMMENDATIONS: Would keep the patient n.p.o. except for ice chips and meds until her diarrhea resolves. Also, obtain stool cultures x 3. Follow up WBC. Also, we will order a gallbladder ultrasound to confirm the evidence of gallstones. We will follow with you. Thank you very much for consultation. JOB# [id number] ARTHUR/COLT
[2017-03-05] MEDS: MORPHINE IV PRN (00:05)
[2017-03-05] MEDS: NACL 0.45% 1000 ML 1,000 ML IV SCH ×3 (03:09→23:40)
--- NOTE | 2017-03-05 09:54 | Progress Note ---
Assessment and Plan Pt states feeling better this am but required Morphine for pain last night. states still hurting in epig region when deep breathing. biliary colic? diarrhea resolved Abd soft, non tender this am. neg epig tenderness at present. surgically stable. labs wnl. wbc down to 4.3 biliary colic? resolving gastroenterists stool cults pending attempt low fat cl liq diet Selected Entries 03/05/17 07:26 Temperature 98.9 F Pulse Rate 54 L Respiratory 16 Rate Blood Pressure 108/62 Laboratory Tests 03/04/17 03/04/17 10:13 10:13 WBC 4.3 L Hgb 12.2 Hct 36.5 Sodium 139 Potassium 3.6 Chloride 103.9 Carbon Dioxide 22 BUN 7 Creatinine 0.5 L Total Bilirubin 0.40 AST 15 ALT 10 Alkaline Phosphatase 45 Amylase 42 Objective Vital Signs - 12hr 03/04/17 03/05/17 03/05/17 22:59 00:05 07:26 Temperature 99.5 F 98.9 F Pulse Rate 53 L 54 L Respiratory 18 18 16 Rate Blood Pressure 124/73 108/62 O2 Sat by Pulse 97 99 Oximetry - Labs 03/04/17 10:13 03/04/17 10:13 Diabetes panel 03/04/17 Range/Units 10:13 Sodium 139 (137-145) mmol/L Potassium 3.6 (3.6-5.0) mmol/L Chloride 103.9 (98-107) mmol/L Carbon Dioxide 22 (22-30) mmol/L BUN 7 (7-17) mg/dL Creatinine 0.5 L (0.7-1.2) mg/dL Glucose 82 (65-100) mg/dL Calcium 8.3 L (8.4-10.2) mg/dL AST 15 (5-40) units/L ALT 10 (7-56) units/L Alkaline Phosphatase 45 (35-129) units/L Total Protein 6.0 L (6.3-8.2) g/dL Albumin 3.2 L (3.9-5) g/dL Calcium panel 03/04/17 Range/Units 10:13 Calcium 8.3 L (8.4-10.2) mg/dL Albumin 3.2 L (3.9-5) g/dL Pituitary panel 03/04/17 Range/Units 10:13 Sodium 139 (137-145) mmol/L Potassium 3.6 (3.6-5.0) mmol/L Chloride 103.9 (98-107) mmol/L Carbon Dioxide 22 (22-30) mmol/L BUN 7 (7-17) mg/dL Creatinine 0.5 L (0.7-1.2) mg/dL Glucose 82 (65-100) mg/dL Calcium 8.3 L (8.4-10.2) mg/dL Adrenal panel 03/04/17 Range/Units 10:13 Sodium 139 (137-145) mmol/L Potassium 3.6 (3.6-5.0) mmol/L Chloride 103.9 (98-107) mmol/L Carbon Dioxide 22 (22-30) mmol/L BUN 7 (7-17) mg/dL Creatinine 0.5 L (0.7-1.2) mg/dL Glucose 82 (65-100) mg/dL Calcium 8.3 L (8.4-10.2) mg/dL Total Bilirubin 0.40 (0.1-1.2) mg/dL AST 15 (5-40) units/L ALT 10 (7-56) units/L Alkaline Phosphatase 45 (35-129) units/L Total Protein 6.0 L (6.3-8.2) g/dL Albumin 3.2 L (3.9-5) g/dL
[2017-03-05] MEDS ORDERED: MIRALAX 3350 PO PRN (10:55)
--- NOTE | 2017-03-05 11:02 | Progress Note ---
Assessment and Plan Acute gastroenteritis; improving CT of the abdomen and pelvis and gallbladder ultrasound results reviewed Gen. surgery note reviewed and discussed with Dr. Monahan Continue clear liquids for now per recommendations of general surgery Vomiting and diarrhea: Improved GERD: Continue PPI Subjective Date of service: 03/05/17 Objective - Constitutional Vitals: Vital Signs - 12hr 03/05/17 03/05/17 00:05 07:26 Temperature 98.9 F Pulse Rate 54 L Respiratory 18 16 Rate Blood Pressure 108/62 O2 Sat by Pulse 99 Oximetry General appearance: Present: no acute distress, well-nourished - EENT Eyes: PERRL, EOM intact ENT: hearing intact, clear oral mucosa - Neck Neck: supple, normal ROM, no masses or JVD - Respiratory Respiratory effort: normal Respiratory: bilateral: CTA - Cardiovascular Rhythm: regular Heart Sounds: Present: S1 & S2 Extremities: No edema - Gastrointestinal General gastrointestinal: Present: soft, non-tender. Absent: hepatomegaly, splenomegaly - Integumentary Integumentary: clear - Musculoskeletal Musculoskeletal: strength equal bilaterally - Neurologic Neurologic: CNII-XII intact, no focal deficits - Psychiatric Psychiatric: appropriate mood/affect - Labs CBC & Chem 7: 03/04/17 10:13 03/04/17 10:13
[2017-03-06 05:40] LABS: Anion Gap 18 mmol/L; BUN/Creatinine Ratio 4; Blood Urea Nitrogen 2 mg/dL (7-17); Calcium 8.7 mg/dL (8.4-10.2); Carbon Dioxide 22 mmol/L (22-30); Chloride 99.6 mmol/L (98-107); Glucose 93 mg/dL (65-100); Potassium 3.4 mmol/L (3.6-5.0); Sodium 136 mmol/L (137-145)
[2017-03-06 09:12] VITALS: BP 132/68
[2017-03-06] MEDS: NACL 0.45% 1000 ML 1,000 ML IV SCH (09:14)
[2017-03-06] MEDS ORDERED: K-DUR PO ONE (09:33)
--- NOTE | 2017-03-06 10:56 | Progress Note ---
Assessment and Plan Pt feeling well without compl. diarrhea resolved. neg pain no narcotics. hungry Abd soft, non tender surgically stable low fat solid diet may d/c today if diet ross. rto this wed Objective Vital Signs - 12hr 03/06/17 03/06/17 07:35 09:17 Temperature 98.2 F Pulse Rate 62 Respiratory 18 20 Rate Blood Pressure 132/68 O2 Sat by Pulse 100 Oximetry - Labs 03/04/17 10:13 03/06/17 04:41 Diabetes panel 03/06/17 Range/Units 04:41 Sodium 136 L (137-145) mmol/L Potassium 3.4 L (3.6-5.0) mmol/L Chloride 99.6 (98-107) mmol/L Carbon Dioxide 22 (22-30) mmol/L BUN 2 L (7-17) mg/dL Creatinine 0.5 L (0.7-1.2) mg/dL Glucose 93 (65-100) mg/dL Calcium 8.7 (8.4-10.2) mg/dL Calcium panel 03/06/17 Range/Units 04:41 Calcium 8.7 (8.4-10.2) mg/dL Pituitary panel 03/06/17 Range/Units 04:41 Sodium 136 L (137-145) mmol/L Potassium 3.4 L (3.6-5.0) mmol/L Chloride 99.6 (98-107) mmol/L Carbon Dioxide 22 (22-30) mmol/L BUN 2 L (7-17) mg/dL Creatinine 0.5 L (0.7-1.2) mg/dL Glucose 93 (65-100) mg/dL Calcium 8.7 (8.4-10.2) mg/dL Adrenal panel 03/06/17 Range/Units 04:41 Sodium 136 L (137-145) mmol/L Potassium 3.4 L (3.6-5.0) mmol/L Chloride 99.6 (98-107) mmol/L Carbon Dioxide 22 (22-30) mmol/L BUN 2 L (7-17) mg/dL Creatinine 0.5 L (0.7-1.2) mg/dL Glucose 93 (65-100) mg/dL Calcium 8.7 (8.4-10.2) mg/dL
--- NOTE | 2017-03-06 13:32 | Discharge Summary ---
Providers - Providers Date of Admission: 03/03/17 15:13 Date of discharge: 03/06/17 Attending physician: MUSHTAQ FOSTER 03/03/17 14:52 Consult to Physician [CONS] Urgent Consulting Provider: HERNAN MONAHAN Reason For Exam: abdominal pain, appendicolith Place consult to:: phone Notified:: y Primary care physician: MUSHTAQ TORRES Hospitalization Condition: Fair Hospital course: Patient is awake and alert No distress No complaints denies any abdominal pain or diarrhea Denies any nausea or vomitings or melena wants to go home Gen. surgery note reviewed She has been cleared for discharge She is tolerating advanced diet fairly well She is medically stable for discharge Assessment: Acute gastroenteritis; resolved CT of the abdomen and pelvis and gallbladder ultrasound results reviewed Gen. surgery note reviewed and discussed with Dr. Monahan We will follow up with Dr. Monahan in his office in 2 days Vomiting and diarrhea: Improved GERD: Continue PPI Disposition: DC- TO HOME OR SELFCARE Time spent for discharge: 32 min Core Measure Documentation - Palliative Care Palliative Care/ Comfort Measures: Not Applicable - Core Measures Any of the following diagnoses?: none Exam - Constitutional Vitals: Temp Pulse Resp BP Pulse Ox 98.2 F 62 20 132/68 100 03/06/17 07:35 03/06/17 07:35 03/06/17 09:17 03/06/17 07:35 03/06/17 07:35 General appearance: Present: no acute distress - EENT Eyes: Present: PERRL, EOM intact ENT: hearing intact, clear oral mucosa - Neck Neck: Present: supple, normal ROM - Respiratory Respiratory effort: normal Respiratory: bilateral: CTA - Cardiovascular Rhythm: regular Heart Sounds: Present: S1 & S2 - Extremities Extremities: No edema - Abdominal General gastrointestinal: Present: soft, non-tender. Absent: hepatomegaly, splenomegaly - Musculoskeletal Musculoskeletal: strength equal bilaterally - Psychiatric Psychiatric: appropriate mood/affect - Neurologic Neurologic: no focal deficits Plan Activity: no restrictions, advance as tolerated Diet: regular, low fat Follow up with: QUINTON SHEIKH MD [Referring] - 3-5 Days HERNAN MONAHAN MD [Staff Physician] - 3 Days
== END 2017-03-06 14:00 | disposition home or self-care (01) | DRG 392 ==
LOC: ED 10:12 → 3A 15:13
PROVIDERS: ADMIT Internal Medicine; ATTEND Internal Medicine
DX: K52.9 Noninfective gastroenteritis and colitis, unspecified (principal); K21.9 Gastro-esophageal reflux disease without esophagitis; K38.1 Appendicular concretions; K80.20 Calculus of gallbladder without cholecystitis without obstruction; E66.01 Morbid (severe) obesity due to excess calories; Z83.3 Family history of diabetes mellitus; Z68.41 Body mass index [BMI] 40.0-44.9, adult; Z79.899 Other long term (current) drug therapy; Z82.49 Family history of ischemic heart disease and other diseases of the circulatory system
CPT/HCPCS: 36415; 74177; 76705; 80048; 80053; 81001; 82150; 83690; 84703; 85007; 85025; 87045; 96361; 96374; 96375; J2270; J2405; J3010; J7030; Q9967

== ENCOUNTER 2017-08-23 14:56 | Emergency (ER) | payer SELFPAY ==
[2017-08-23 15:24] VITALS: BP 124/69
--- NOTE | 2017-08-23 16:52 | Emergency Department Report ---
Minor Respiratory - HPI Chief Complaint: Upper Respiratory Infection Stated Complaint: COLD/FLU Time Seen by Provider: 08/23/17 16:22 Duration: 3 Days Pain Location: Throat, Chest Severity: moderate Minor Respiratory: Yes Rhinorrhea, Yes Sore Throat, Yes Able to Tolerate Fluids , Yes Cough (productive of yellow sputum), Yes Chest Pain, Yes Fever, No Ear Pain, No Sick Contacts, No Hemoptysis, No Shortness of Breath ED Review of Systems ROS: Stated complaint: COLD/FLU Other details as noted in HPI Comment: All other systems reviewed and negative ED Past Medical Hx - Past Medical History Previous Medical History?: Yes Hx Congestive Heart Failure: No Hx Diabetes: No Hx GERD: Yes Hx Asthma: No Hx COPD: No - Surgical History Past Surgical History?: No - Social History Smoking Status: Never Smoker Substance Use Type: Marijuana - Medications Home Medications: Home Medications Medication Instructions Recorded Confirmed Last Taken Type ALBUTEROL Inhaler [ProAir HFA 2 puff IH QID PRN #1 inhalation 08/23/17 Unknown Rx Inhaler] Azithromycin [Zithromax Z-YSABEL] 250 mg PO DAILY #6 tablet 08/23/17 Unknown Rx Minor Respiratory Exam - Exam General: Vital signs noted. No distress. Alert and acting appropriately. HEENT: Yes Pharyngeal Erythema, Yes Moist Mucous Membranes, No Pharyngeal Exudates, No Rhinorrhea, No Conjuctival Injection, No Frontal Tenderness, No Maxillary Tenderness Ear: Neither TM Bulge, Neither TM Erythema, Neither EAC Pain, Neither EAC Discharge Neck: Yes Supple, No Adenopathy Lungs: Yes Good Air Exchange, No Wheezes, No Ronchi, No Stridor, No Cough, No Labored Respirations, No Retractions, No Use of Accessory Muscles, No Other Abnormal Lung Sounds Heart: Yes Regular, No Murmur Abdomen: Yes Normal Bowel Sounds, No Tenderness, No Peritoneal Signs Skin: No Rash, No Edema Neurologic: Alert and oriented, no deficits. Musculoskeletal: Unremarkable. ED Course Vital Signs 08/23/17 15:19 Temperature 100.2 F H Pulse Rate 95 H Respiratory 16 Rate Blood Pressure 124/69 O2 Sat by Pulse 100 Oximetry ED Medical Decision Making - Medical Decision Making Patient is a proximally 6-8 weeks . Patient because her symptoms be started on Z-Ysabel and albuterol inhaler and she can take Tylenol for pain and given several Zofran for nausea and vomiting as well. Critical care attestation.: If time is entered above; I have spent that time in minutes in the direct care of this critically ill patient, excluding procedure time. ED Disposition Clinical Impression: Acute bronchitis Qualifiers: Bronchitis organism: unspecified organism Qualified Code(s): J20.9 - Acute bronchitis, unspecified Disposition: DC-01 TO HOME OR SELFCARE Is pt being admited?: No Does the pt Need Aspirin: No Condition: Stable Instructions: Acute Bronchitis (ED) Referrals: PRIMARY CARE, [Primary Care Provider] - 3-5 Days
== END 2017-08-23 17:00 | disposition home or self-care (01) ==
LOC: ED 14:56
DX: O99.511 Diseases of the respiratory system complicating pregnancy, first trimester (principal); J20.9 Acute bronchitis, unspecified; K21.9 Gastro-esophageal reflux disease without esophagitis; F12.90 Cannabis use, unspecified, uncomplicated; Z3A.08 8 weeks gestation of pregnancy
CPT/HCPCS: 99282

== ENCOUNTER → 2017-08-23 | Emergency (ER) | payer SELFPAY | LOC: ED 14:41 | DX: J00 Acute nasopharyngitis [common cold] (principal); Z53.21 Procedure and treatment not carried out due to patient leaving prior to being seen by health care provider ==

== ENCOUNTER 2017-10-23 23:31 | Emergency (ER) | payer MEDICAID ==
[2017-10-24] MEDS ORDERED: NACL 0.9% 1000 ML 1,000 ML IV ONE ×2 (00:54→09:49)
[2017-10-24 01:20] LABS: Basophils # (Auto) 0.1 K/mm3 (0.0-0.1); Basophils % (Auto) 0.4 % (0.0-1.8); Eosinophils % (Auto) 0.1 % (0.0-4.3); Hemoglobin 12.5 gm/dl (10.1-14.3); Lymphocytes # (Auto) 1.2 K/mm3 (1.2-5.4); Mean Corpuscular HGB Conc 35 % (30-34); Mean Corpuscular Hemoglobin 33 pg (28-32); Mean Corpuscular Volume 94 fl (79-97); Monocytes # (Auto) 0.6 K/mm3 (0.0-0.8); Monocytes % (Auto) 4.6 % (0.0-7.3); Platelet Count 274 K/mm3 (140-440); Red Blood Count 3.85 M/mm3 (3.65-5.03); Red Cell Distribution Width 14.1 % (13.2-15.2)
--- NOTE | 2017-10-24 02:39 | Ultrasound Report ---
FINAL REPORT PROCEDURE: US OB > = 14 WEEKS FETUS TECHNIQUE: Real-time limited sonographic examination was performed for evaluation of size, position, heartbeat, fluid volume for each fetus with image documentation (1 or more fetuses). CPT 46875 HISTORY: abdominal pain and . COMPARISON: No prior studies are available for comparison. FINDINGS: There is a single fetus within the uterus. heart weight 165 beats per minute. The placenta is developing along the fundus of the uterus. No previa is identified. An average uterine age of 16 weeks 1 days from the following measurements: BPD 3.3 centimeter, HC 12.2 centimeter, AC 10.2 centimeter, FL 2.1 centimeter. The estimated date confinement is 04/09/2018. There is a normal amount of amniotic fluid present. The fetus is in a transverse position. IMPRESSION: Single living intrauterine gestation at approximately 16 weeks 1 day. The estimated date confinement is 04/09/2018.
--- NOTE | 2017-10-24 02:40 | Ultrasound Report ---
FINAL REPORT PROCEDURE: US ABDOMEN LIMITED TECHNIQUE: Real-time sonography was performed of the gallbladder with image documentation. CPT 41572 HISTORY: RUQ Pain COMPARISON: No prior studies are available for comparison. FINDINGS: There are stones identified within the gallbladder lumen. The common bile duct is normal and measures 3 millimeters. The portion of the liver, right kidney and pancreas imaged are normal.. IMPRESSION: Cholelithiasis. Normal common bile duct.
[2017-10-24 02:44] LABS: Alanine Aminotransferase TNR units/L (7-56); Albumin TNR g/dL (3.9-5); BUN/Creatinine Ratio TNR; Blood Urea Nitrogen TNR mg/dL (7-17); Calcium TNR mg/dL (8.4-10.2); Hemolysis Index TNR
[2017-10-24 03:25] LABS: Alanine Aminotransferase 12 units/L (7-56); BUN/Creatinine Ratio 18; Blood Urea Nitrogen 9 mg/dL (7-17); Calcium 9.3 mg/dL (8.4-10.2); Hemolysis Index 4
[2017-10-24] MEDS ORDERED: ZOFRAN IV ONE (09:49)
[2017-10-24] MEDS ORDERED: PEPCID IV ONE (09:49)
--- NOTE | 2017-10-24 09:59 | Emergency Department Report ---
ED Abdominal Pain HPI - General Chief Complaint: Abdominal Pain Stated Complaint: ABDOMINAL PAIN Time Seen by Provider: 10/24/17 09:21 Source: patient Mode of arrival: Ambulatory Limitations: No Limitations - History of Present Illness Initial Comments: Assist with 26-year-old -Citizen Of [place] female who presents with abdominal pain , nausea, and vomiting for 24 hours. Patient states she is 16 weeks gestation. Patient states she has a history of gallstones with health symptoms. She states she has been experiencing nausea with vomiting 4 times in the past 24 hours. Patient states she used drinking fluids and eating but unable to hold anything down. She is followed by [facility] at [facility]. She has a follow-up appointment November 21. Patient reports abdominal pain is stabbing pain that is 10 out of 10 on pain scale. Denies taking anything for symptomatic relief. Patient denies fever, palpitations, chest pain, burning sensation, nausea, dysuria, and diarrhea. MD Complaint: abdominal pain Onset/Timin -: days(s) Location: diffuse Radiation: none Migration to: no migration Severity scale (0 -10): 10 Quality: stabbing Consistency: constant Improves With: nothing Worsens With: eating, vomiting Associated Symptoms: nausea, vomiting. denies: diarrhea, fever, chills, constipation, dysuria, hematemesis, hematochezia, melena, hematuria, anorexia, syncope - Related Data LMP Date: 06/30/17 LMP (females 10-50): Previous Rx's Medication Instructions Recorded Last Taken Type ALBUTEROL Inhaler [ProAir HFA 2 puff IH QID PRN #1 inhalation 08/23/17 Unknown Rx Inhaler] Azithromycin [Zithromax Z-YSABEL] 250 mg PO DAILY #6 tablet 08/23/17 Unknown Rx Ondansetron [Zofran Odt] 4 mg PO Q8HR PRN #10 tab.rapdis 08/23/17 Unknown Rx Allergies Allergy/AdvReac Type Severity Reaction Status Date / Time Penicillins Allergy Itching Verified 08/23/17 15:19 ED Review of Systems ROS: Stated complaint: ABDOMINAL PAIN Other details as noted in HPI Constitutional: denies: chills, fever Respiratory: denies: cough, shortness of breath, wheezing Cardiovascular: denies: chest pain, palpitations Gastrointestinal: abdominal pain, nausea, vomiting. denies: diarrhea, constipation, hematemesis, melena, hematochezia Genitourinary: denies: urgency, dysuria, frequency, hematuria, discharge Neurological: denies: headache, weakness, numbness, paresthesias Psychiatric: denies: anxiety, depression ED Past Medical Hx - Past Medical History Hx Congestive Heart Failure: No Hx Diabetes: No Hx GERD: Yes Hx Asthma: No Hx COPD: No - Social History Smoking Status: Never Smoker Substance Use Type: None - Medications Home Medications: Home Medications Medication Instructions Recorded Confirmed Last Taken Type ALBUTEROL Inhaler [ProAir HFA 2 puff IH QID PRN #1 inhalation 08/23/17 Unknown Rx Inhaler] Azithromycin [Zithromax Z-YSABEL] 250 mg PO DAILY #6 tablet 08/23/17 Unknown Rx Ondansetron [Zofran Odt] 4 mg PO Q8HR PRN #10 tab.rapdis 08/23/17 Unknown Rx ED Physical Exam - General Limitations: No Limitations General appearance: alert, in no apparent distress - Respiratory Respiratory exam: Present: normal lung sounds bilaterally. Absent: respiratory distress - Cardiovascular Cardiovascular Exam: Present: regular rate, normal rhythm, normal heart sounds. Absent: systolic murmur, diastolic murmur, rubs, gallop - GI/Abdominal GI/Abdominal exam: Present: soft, normal bowel sounds - Back Exam Back exam: Present: normal inspection, full ROM. Absent: CVA tenderness (R), CVA tenderness (L) - Neurological Exam Neurological exam: Present: alert, oriented X3 - Psychiatric Psychiatric exam: Present: normal affect, normal mood - Skin Skin exam: Present: warm, dry, intact, normal color. Absent: rash ED Course Vital Signs 10/23/17 10/24/17 10/24/17 23:51 00:48 07:35 Temperature 99.2 F 99.2 F 98.6 F Pulse Rate 88 87 71 Respiratory 18 18 16 Rate Blood Pressure 123/65 123/65 Blood Pressure 116/60 [Right] O2 Sat by Pulse 100 100 100 Oximetry ED Medical Decision Making - Lab Data Result diagrams: 10/24/17 01:02 10/24/17 03:01 Lab Results 10/24/17 10/24/17 10/24/17 Range/Units 01:02 01:02 01:03 WBC 13.2 H (4.5-11.0) K/mm3 RBC 3.85 (3.65-5.03) M/mm3 Hgb 12.5 (10.1-14.3) gm/dl Hct 36.0 (30.3-42.9) % MCV 94 (79-97) fl MCH 33 H (28-32) pg MCHC 35 H (30-34) % RDW 14.1 (13.2-15.2) % Plt Count 274 (140-440) K/mm3 Lymph % (Auto) 9.0 L (13.4-35.0) % [place] % (Auto) 4.6 (0.0-7.3) % Eos % (Auto) 0.1 (0.0-4.3) % Baso % (Auto) 0.4 (0.0-1.8) % Lymph # 1.2 (1.2-5.4) K/mm3 [place] # 0.6 (0.0-0.8) K/mm3 Eos # 0.0 (0.0-0.4) K/mm3 Baso # 0.1 (0.0-0.1) K/mm3 Seg Neutrophils % 85.9 H (40.0-70.0) % Seg Neutrophils # 11.3 H (1.8-7.7) K/mm3 Sodium TNR Potassium TNR Chloride TNR Carbon Dioxide TNR Anion Gap TNR BUN TNR Creatinine TNR Estimated GFR TNR BUN/Creatinine Ratio TNR Glucose TNR Calcium TNR Total Bilirubin TNR AST TNR ALT TNR Alkaline Phosphatase TNR Total Protein TNR Albumin TNR Albumin/Globulin Ratio TNR HCG, Qual Positive (Negative) Urine Color (Yellow) Urine Turbidity (Clear) Urine pH (5.0-7.0) Ur Specific [place] (1.003-1.030) Urine Protein (Negative) mg/dL Urine Glucose (UA) (Negative) mg/dL Urine Ketones (Negative) mg/dL Urine Blood (Negative) Urine Nitrite (Negative) Urine Bilirubin (Negative) Urine Urobilinogen (<2.0) mg/dL Ur Leukocyte Esterase (Negative) Urine WBC (Auto) (0.0-6.0) /HPF Urine RBC (Auto) (0.0-6.0) /HPF U Epithel Cells (Auto) (0-13.0) /HPF Urine Mucus /HPF 10/24/17 10/24/17 Range/Units 03:01 09:34 WBC (4.5-11.0) K/mm3 RBC (3.65-5.03) M/mm3 Hgb (10.1-14.3) gm/dl Hct (30.3-42.9) % MCV (79-97) fl MCH (28-32) pg MCHC (30-34) % RDW (13.2-15.2) % Plt Count (140-440) K/mm3 Lymph % (Auto) (13.4-35.0) % [place] % (Auto) (0.0-7.3) % Eos % (Auto) (0.0-4.3) % Baso % (Auto) (0.0-1.8) % Lymph # (1.2-5.4) K/mm3 [place] # (0.0-0.8) K/mm3 Eos # (0.0-0.4) K/mm3 Baso # (0.0-0.1) K/mm3 Seg Neutrophils % (40.0-70.0) % Seg Neutrophils # (1.8-7.7) K/mm3 Sodium 136 L Potassium 4.3 Chloride 99.8 Carbon Dioxide 23 Anion Gap 18 BUN 9 Creatinine 0.5 L Estimated GFR > 60 BUN/Creatinine Ratio 18 Glucose 93 Calcium 9.3 Total Bilirubin 0.30 AST 17 ALT 12 Alkaline Phosphatase 48 Total Protein 7.2 Albumin 4.0 Albumin/Globulin Ratio 1.3 HCG, Qual (Negative) Urine Color Yellow (Yellow) Urine Turbidity Clear (Clear) Urine pH 7.0 (5.0-7.0) Ur Specific [place] 1.016 (1.003-1.030) Urine Protein <15 mg/dl (Negative) mg/dL Urine Glucose (UA) Neg (Negative) mg/dL Urine Ketones 20 (Negative) mg/dL Urine Blood Neg (Negative) Urine Nitrite Neg (Negative) Urine Bilirubin Neg (Negative) Urine Urobilinogen < 2.0 (<2.0) mg/dL Ur Leukocyte Esterase Neg (Negative) Urine WBC (Auto) 1.0 (0.0-6.0) /HPF Urine RBC (Auto) 2.0 (0.0-6.0) /HPF U Epithel Cells (Auto) 12.0 (0-13.0) /HPF Urine Mucus Few /HPF - Radiology Data Radiology results: report reviewed, image reviewed FINAL REPORT PROCEDURE: US ABDOMEN LIMITED TECHNIQUE: Real-time sonography was performed of the gallbladder with image documentation. CPT 43956 HISTORY: RUQ Pain COMPARISON: No prior studies are available for comparison. FINDINGS: There are stones identified within the gallbladder lumen. The common bile duct is normal and measures 3 millimeters. The portion of the liver, right kidney and pancreas imaged are normal.. IMPRESSION: Cholelithiasis. Normal common bile duct. FINAL REPORT PROCEDURE: US OB gt; = 14 WEEKS FETUS TECHNIQUE: Real-time limited sonographic examination was performed for evaluation of size, position, heartbeat, fluid volume for each fetus with image documentation (1 or more fetuses). CPT 82903 HISTORY: abdominal pain and . COMPARISON: No prior studies are available for comparison. FINDINGS: There is a single fetus within the uterus. heart weight 165 beats per minute. The placenta is developing along the fundus of the uterus. No previa is identified. An average uterine age of 16 weeks 1 days from the following measurements: BPD 3.3 centimeter, HC 12.2 centimeter, AC 10.2 centimeter, FL 2.1 centimeter. The estimated date confinement is 04/09/2018. There is a normal amount of amniotic fluid present. The fetus is in a transverse position. IMPRESSION: Single living intrauterine gestation at approximately 16 weeks 1 day. The estimated date confinement is 04/09/2018. - Medical Decision Making 26 y.o. female that presents with abdominal pain, nausea, and vomiting for 24 hours. Patient examined by me. Vitals stable. Patient is 16 weeks gestation. Obtained CBC, UA, & CMP, hCG qual. Patient given Pepcid 20 mg IV, Zofran 4 mg IV and normal saline 1 L bolus. OB ultrasound and vaginal ultrasound obtained. Cholelithiasis. Normal common bile duct. Single living intrauterine gestation at approximately 16 weeks 1 day. The estimated date confinement is 04/09/2018. Patient reports feeling much better. Patient will f/u with [facility] and referral to general surgery. Discharged home stable. Critical care attestation.: If time is entered above; I have spent that time in minutes in the direct care of this critically ill patient, excluding procedure time. ED Disposition Clinical Impression: Nausea and vomiting during Cholelithiasis Qualifiers: Cholelithiasis location: gallbladder Cholecystitis presence: without cholecystitis Biliary obstruction: with biliary obstruction Qualified Code(s): K80.21 - Calculus of gallbladder without cholecystitis with obstruction Disposition: TO HOME OR SELFCARE Is pt being admited?: No Does the pt Need Aspirin: No Condition: Stable Instructions: Biliary Colic (ED), Low Fat Diet (ED), Acute Nausea and Vomiting (ED), Abdominal Pain (ED) Additional Instructions: Follow-up with [facility] in 2-3 days. There is a referral for general surgery follow-up. Increase fluid intake as tolerated. Return to emergency room if abdominal pain, fever, nausea and/or vomiting, anorexia, or changes in mental status. Referrals: [facility] [Provider Group] - 3-5 Days HERNAN REYES MD [Staff Physician] - 3-5 Days Forms: Work/School Release Form(ED) Time of Disposition: 11:30 Print Language: LAO
[2017-10-24 10:03] LABS: Bilirubin,Urine NEG (Negative); Blood,Urine NEG (Negative); Color,Urine Yellow (Yellow); Mucus,Urine FEW /HPF; Protein,Urine <15 mg/dL mg/dL (Negative); Urobilinogen,Urine < 2.0 mg/dL (<2.0)
[2017-10-24 12:02] VITALS: BP 118/68
== END 2017-10-24 11:59 | disposition home or self-care (01) ==
LOC: ED 23:31
DX: O99.612 Diseases of the digestive system complicating pregnancy, second trimester (principal); K80.21 Calculus of gallbladder without cholecystitis with obstruction; K21.9 Gastro-esophageal reflux disease without esophagitis; Z88.0 Allergy status to penicillin; Z3A.16 16 weeks gestation of pregnancy
CPT/HCPCS: 36415; 76705; 76805; 80053; 81001; 84703; 85025; 96361; 96374; 96375; 99284; J2405; J7030

== ENCOUNTER 2019-01-23 15:51 | Outpatient (CLI) | payer SELFPAY ==
--- NOTE | 2019-01-23 17:15 | XRay Report ---
Cervical spine with obliques, 5 views INDICATION:Neck pain following injury today FINDINGS: On the lateral view the cervical spine is seen to the level of C-7. The vertebral body heig hts and disc spaces are preserved. No subluxation is seen. Prevertebral soft tissues are normal. T he odontoid view is unremarkable. Oblique views show widely patent neural foramina without bony sten osis. No facet arthropathy seen. IMPRESSION: Negative cervical spine with obliques Signer Name: Joseph Lomas MD Signed: 01/23/2019 5:10 PM Workstation Name: [id number]
== END 2019-01-23 15:52 | disposition home or self-care (01) ==
LOC: XRAY 15:51
PROVIDERS: ATTEND Internal Medicine
DX: M62.838 Other muscle spasm (principal); K21.9 Gastro-esophageal reflux disease without esophagitis; Z88.0 Allergy status to penicillin
CPT/HCPCS: 72050